=== PATIENT | male | born 1975 | race African-American/Black ===

== ENCOUNTER 2018-06-23 09:08 | Emergency (ER) | payer SELFPAY ==
[~2018-06-23] VITALS: Ht 165.1 cm; Wt 60.3 kg
[2018-06-23 09:09] VITALS: BP 138/82
[2018-06-23] MEDS ORDERED: PROPARACAINE OPHTH 0.5%, 15ML ONE (09:21)
== END 2018-06-23 10:07 | disposition home or self-care (01) ==
LOC: ED 09:40
DX: H10.231 Serous conjunctivitis, except viral, right eye (principal); J45.909 Unspecified asthma, uncomplicated; F17.200 Nicotine dependence, unspecified, uncomplicated
CPT/HCPCS: 99283

== ENCOUNTER 2018-06-30 10:25 | Emergency (ER) | payer OTHER ==
[~2018-06-30] VITALS: Ht 165.1 cm; Wt 61.3 kg
[2018-06-30 10:34] VITALS: BP 131/79
[2018-06-30] MEDS ORDERED: PROPARACAINE OPHTH 0.5%, 15ML ONE (10:56)
[2018-06-30] MEDS ORDERED: PROPARACAINE OPHTH 0.5%, 15ML EACHEYE ONE (11:00)
== END 2018-06-30 11:49 | disposition home or self-care (01) ==
LOC: ED 11:43
DX: S05.01XA Injury of conjunctiva and corneal abrasion without foreign body, right eye, initial encounter (principal); J30.2 Other seasonal allergic rhinitis; X58.XXXA Exposure to other specified factors, initial encounter; Y93.89 Activity, other specified; Y92.89 Other specified places as the place of occurrence of the external cause; Y99.8 Other external cause status
CPT/HCPCS: 99283